=== PATIENT | male | born 2000 | race American Indian/Alaskan Native ===

== ENCOUNTER 2020-12-09 14:30 | Observation (INO) | payer BC ==
[~2020-12-09] VITALS: Ht 182.9 cm; Wt 96.1 kg
--- NOTE | 2020-12-09 19:38 | NUR ---
SHIFT REPORT RECEIVED FROM CHRISTOPHER TEJADA. PT STILL IN SURGERY.
--- NOTE | 2020-12-09 21:03 | NUR ---
12/09/202102 AUREA TRONCOSO 2042 PATIENT INTO PACU. AIRWAY BEING SUPPORTED WITH JAW THRUST. 6L MASK. PATIENT NOT RESPONDING TO PAINFUL STIMULI. DRESSING TO ABDOMEN STERI STRIPS, PUNCTURE SITES X3 SMALL AMOUNT OF RED DRAINAGE. 2100 AIRWAY SELF REMOVED, PATIENT RESPONDS TO VERBAL STIMULI, APPEARS DROWSY, CONTINUES TO REST WITH EYES CLOSED. 100% ROOM AIR. VSS. DRESSING HAVE NO NEW DRAINAGE AT SURGICAL SITE. ABDOMEN SOFT.
--- NOTE | 2020-12-09 21:30 | NUR ---
IN ROOM TO TAKE VS. PT ALREADY MOVED OVER TO BED. ORIENTED PT TO CALL LIGHT AND REVIEWED ADMISSION HX WITH PT. BROUGHT BEDDING IN FOR VISITOR. CALL LIGHT IS CLOSE AND PRIMARY RN YUKI IS IN THE ROOM.
--- NOTE | 2020-12-09 22:00 | NUR ---
ASSESSMENT, VS AND I&O COMPLETED. PT DUE TO VOID. SCHEDULED MEDS PROVIDED. PT PAIN 3/10 IN ABD. GCS 15, A&O X4. LUNGS CLEAR, HEART TONES REGULAR. ABD SOFT, TENDER, MILDLY DISTENDED, BOWEL TONES HYPOACTIVE. DRESSINGS WNL, SCANT SANGUINOUS OUTPUT. CMS INTACT. SCHEDULED MEDS PROVIDED. IV FLUID INFUSING PER ORDER. IV WNL. PUDDING AND JELLO PROVIDED. FRIEND IN ROOM. NO OTHER NEEDS. CALL LIGHT IN REACH.
--- NOTE | 2020-12-09 22:38 | NUR ---
PT CALLED SAYING THAT HE HAS BLOOD ON HIS GOWN AND WAS NOT SURE IF THIS WAS NORMAL. UPON INSPECTION IT APPEARS TO BE A SMALL AMOUNT, STERISTRIPS AT ALL 3 LAPSITES HAVE BLOOD ON THEM BUT NOTHING IS CURRENTLY DRAINING. TOLD PT THIS IS WNL AND WE WILL KEEP AN EYE ON IT AND WILL TELL PRIMARY MALLORY MIRZA. PT DENIES FURTHER NEEDS, CALL LIGHT IS CLOSE.
--- NOTE | 2020-12-09 22:59 | NUR ---
IN TO ASSIST RN WITH/ENTER POST OP VITALS
--- NOTE | 2020-12-09 23:33 | NUR ---
SCHEDULED MED PROVIDED. BROTH AND PUDDING PROVIDED. NO OTHER NEEDS. CALL LIGHT IN REACH.
--- NOTE | 2020-12-10 00:05 | NUR ---
VS COMPLETED. PT STOOD AT BEDSIDE TO URINATE WITHOUT DIFFICULTY. NO OTHER NEEDS. CALL LIGHT IN REACH.
--- NOTE | 2020-12-10 00:58 | NUR ---
VS COMPLETED. ABD PAIN 3/10, DENIES NEED FOR INTERVENTION. PT REPORTS BOWEL "GRUMBLING" BUT NOT PASSING GAS. JELLO AND PUDDING PROVIDED. NO OTHER NEEDS. CALL LIGHT IN REACH.
--- NOTE | 2020-12-10 02:10 | NUR ---
IN TO GET 2AM VITALS, PT DENIES NEED TO VOID, FRESH ICE WATER GIVEN, NO FURTHER NEEDS AT THIS TIME
--- NOTE | 2020-12-10 04:00 | NUR ---
PT RESTING IN BED, EYES CLOSED. RR EVEN, UNLABORED. CALL LIGHT IN REACH.
--- NOTE | 2020-12-10 05:37 | NUR ---
ASSESSMENT, VS AND I&O COMPLETED. PT UP TO BR AND BACK TO BED, SBA. ABD PAIN 4/10, SCHEDULED PAIN MED PROVIDED. GCS 15, A&O X4. LUNGS CLEAR, HEART TONES REGULAR. ABD SOFT, TENDER, MILDLY DISTENDED, BOWEL TONES ACTIVE, PT REPORTS FLATUS. STERI STRIPS WNL. PT DENIES NAUSEA. CMS INTACT. IV WNL, IV FLUIDS INFUSING PER ORDER. IV FLUIDS INFUSING PER ORDER. NO OTHER NEEDS. CALL LIGHT IN REACH.
--- NOTE | 2020-12-10 08:36 | NUR ---
PATIENT AWAKE IN BED, BOARD UPDATED, PATIENT WOULD LIKE A SHOWER THIS MORNING AFTER BREAKFAST.
--- NOTE | 2020-12-10 09:15 | NUR ---
PT AWAKE AND ALERT THIS AM, TOLERATING REGULAR DIET WELL. INDEPENDENT IN ROOM, STEADY ON FEET. SS IN PLACE OVER 3 LAP SITES, NO NEW DRAINAGE. NO ACUTE CHANGES TO ASSESSMENT. PT FEELING WELL OVERALL. MORNING MEDICATIONS GIVEN. PT CALLS APPROPRIATELY.
--- NOTE | 2020-12-10 12:20 | NUR ---
PT IN BR-WILL CHECK BACK
--- NOTE | 2020-12-10 13:08 | NUR ---
PATIENT AWAKE IN BED, FAMILY IN ROOM. VITALS AND I&OS CHARTED. FRESH ICE WATER AND PUDDING PROVIDED.
[2020-12-10] MEDS ORDERED: OXYCODON-ACETA1 EAC2 PO (13:57)
[2020-12-10] MEDS ORDERED: IBUPROFEN600 MG PO (13:57)
[2020-12-10] MEDS ORDERED: ACETAMINOPHEN500 MG PO (13:58)
--- NOTE | 2020-12-11 11:49 | OR ---
[facility] [address], [place] [address] Signed DATE OF OPERATION: 12/09/2020 SURGEON: Jarrod Mcnulty MD PREOPERATIVE DIAGNOSIS: Acute appendicitis. POSTOPERATIVE DIAGNOSIS: Acute appendicitis without perforation. PROCEDURE: Laparoscopic appendectomy. ANESTHESIA: General endotracheal; Zoraida Murillo CRNA and local 10 mL of 0.25% Marcaine with epinephrine. INDICATION: This 20-year-old man presented to the emergency room today with right lower abdominal pain, having lasted less than 24 hours in aggregate. He was evaluated by Dr. Lara who found him to have tenderness in the right lower quadrant. White count elevated to 12.[address] scan of the abdomen confirming appendicitis with fecalith. He has been fluid resuscitated, given intravenous antibiotic cefoxitin and is now to undergo appendectomy preferably by laparoscopic approach. The risk of bleeding, infection, need for open procedure, need for other indicated procedures and so forth was all reviewed with him. He understands and wished to proceed. FINDINGS: Indeed the appendix was quite inflamed. It was not perforated. There was no sign of abscess. Complete appendectomy was performed without problem. There were no other findings of concern. The terminal ileum was normal. The liver and gallbladder were normal. DESCRIPTION OF PROCEDURE: The patient was brought to the operating room, given a general endotracheal anesthetic. Preoperative antibiotic cefoxitin had been given. A Ingram catheter was not required as he had voided immediately prior to operation. The abdomen was clipped and prepared with a chlorhexidine solution and draped sterilely. An infraumbilical incision was made using an open Alysia cannula technique. Pneumoperitoneum was achieved to level of 14 mmHg with carbon dioxide gas. Intraabdominal inspection showed no sign of ascites or Electronically Signed By: JARROD MCNULTY MD 12/11/20 1149 PATIENT NAME: MORRIS VAZQUEZ OPERATIVE REPORT DATE OF : 00 REPORT #: [id number] PHYSICIAN: JARROD MCNULTY MD PCP: NO PRIMARY CARE PHYSICIAN REPORT IS CONFIDENTIAL AND NOT TO BE RELEASED WITHOUT AUTHORIZATION [facility] [address], [place] [address] Signed carcinomatosis. The gallbladder appeared normal as did the liver. The appendix was visualized as it was somewhat anterior in its position, definitely markedly inflamed without sign of purulence proper nor any sign of perforation. An epigastric 12 mm port was placed and the camera replaced to that site. In the right lower quadrant, 5 mm port was placed and with two hand manipulation, the cecum and appendix could be more fully evaluated. The terminal ileum was normal. The appendix was elevated and a window created between the appendix and the cecum and using an Endo-EVAN stapling device, the appendix was transected, flushed indeed with a portion of cecum. Further manipulation allowed for application of an Endo-EVAN to the mesentery of the appendix, transecting it well. The appendix was placed in an endobag and extracted through the infraumbilical port site. Irrigation was undertaken in the region of the staple line and there was no sign of bleeding or other problems. Excess irrigation fluid was suctioned free in the pelvis as well as over the liver. Direct visualization of the port sites was used to remove the trocars, confirming no sign of ongoing bleeding. The epigastric port had some oozing of subcutaneous tissue blood and this was secured with 0 Vicryl suture in the fascial layer with good and complete hemostasis. The infraumbilical fascial incision was reapproximated with interrupted 0 Vicryl suture. A 10 mL of 0.25% Marcaine with epinephrine was injected locally. The skin was closed with interrupted 3-0 Vicryl. Steri-Strips were applied. The patient was ultimately extubated and transferred to the recovery room in good condition having suffered no complications. Sponge, needle, and instrument counts were reported as correct x3. MD ANGI Alarcon/YONATHANL /[id number] cc: Matthew Lara Copies: MATTHEW LARA ~ Electronically Signed By: JARROD MCNULTY MD 12/11/20 1149 PATIENT NAME: MORRIS VAZQUEZ OPERATIVE REPORT DATE OF : 00 REPORT #: [id number] PHYSICIAN: JARROD MCNULTY MD PCP: NO PRIMARY CARE PHYSICIAN REPORT IS CONFIDENTIAL AND NOT TO BE RELEASED WITHOUT AUTHORIZATION
--- NOTE | 2020-12-11 11:49 | HP ---
[facility] [address], [place] [address] Signed ADMISSION DATE: 12/09/2020 REASON FOR ADMISSION: Acute appendicitis. HISTORY OF PRESENT ILLNESS: This muscular and relatively thin and tall 20-year-old Mexican man began having abdominal pain earlier in the day. This was associated with a brief amount of nausea but no actual vomiting. He presented to the emergency room where he was thoroughly evaluated by Dr. Matthew Lara including clinical examination. LABORATORY DATA: Lab studies show an elevated white count greater than 12,000. A CT scan of the abdomen showing a dilated appendix with fecalith consistent with appendicitis. He is admitted for further evaluation and care. PAST MEDICAL HISTORY: Notable for tonsillectomy in the distant past. He has no other medical problems. The patient remains vigorously healthy and works out on a routine basis. 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 He is from [place], [place] and is a member of . He is accompanied by his girlfriend today. Notably, his father is a natural sciences manager in the [place] area. REVIEW OF SYSTEMS: He denies any shortness of breath or chest pain. He has had no dysphagia or dysuria. He denies any hematemesis or blood per rectum. PHYSICAL EXAMINATION: GENERAL: Well-developed, well-nourished, muscular tall young [place] man who does not look systemically toxic. HEENT: Trachea is midline. Mucous membranes are moist. CHEST: Shows normal respiratory excursion. Pulses regular. HEART: Regular. ABDOMEN: Nondistended. Rovsing sign is negative at this time, previously positive from other physician exam. He does have mild tenderness at McBurney's point. EXTREMITIES: Show no clubbing, cyanosis, or edema. LAB STUDIES: Show elevated white count greater than 12.6. Other lab studies are normal. I have reviewed the CT scan in detail as well as report and reviewed with the radiologist as Electronically Signed By: JARROD MCNULTY MD 12/11/20 1149 PATIENT NAME: MORRIS VAZQUEZ HISTORY AND PHYSICAL DATE OF : 00 REPORT #: [id number] PHYSICIAN: JARROD MCNULTY MD PCP: NO PRIMARY CARE PHYSICIAN REPORT IS CONFIDENTIAL AND NOT TO BE RELEASED WITHOUT AUTHORIZATION [facility] [address], [place] [address] Signed well. ASSESSMENT: The patient has an acute appendicitis with a fecalith noted at the base of the appendix. Discussed with him in detail the pathophysiology of the problem and recommendation of treatment to include appendectomy. He was begun on cefoxitin antibiotic already. I expect a laparoscopic approach to appendectomy would be possible though an open procedure may be required. The risk of bleeding, infection, failure to cure the problem, and other unforeseen complications were reviewed in detail, he understands and wished to proceed. I did briefly discuss the concept of antibiotic therapy (conservative management) of appendicitis which I would not recommend, particularly in the presence of fecalith. He agrees with this as well. MD ANGI Alarcon/RAMIREZ /[id number] cc: Matthew Lara Copies: MATTHEW LARA ~ Electronically Signed By: JARROD MCNULTY MD 12/11/20 1149 PATIENT NAME: MORRIS VAZQUEZ PB HISTORY AND PHYSICAL DATE OF : 00 REPORT #: [id number] PHYSICIAN: JARROD MCNULTY MD PCP: NO PRIMARY CARE PHYSICIAN REPORT IS CONFIDENTIAL AND NOT TO BE RELEASED WITHOUT AUTHORIZATION
--- NOTE | 2020-12-16 14:42 | PATH ---
[facility] [address] [place] [address] Signed SPECIMEN(S): A APPENDIX SPECIMEN SOURCE: A. APPENDIX CLINICAL HISTORY: Pre: Acute appendicitis. Post: Laparoscopic appendectomy. FINAL PATHOLOGIC DIAGNOSIS: Appendix, appendectomy: - Acute appendicitis. - Acute periappendicitis. - No evidence of neoplasia. SHAIK:mily:C2NR MICROSCOPIC EXAMINATION: Histologic sections of all submitted blocks are examined by light microscopy. These findings, together with the gross examination, support the pathologic diagnosis. GROSS DESCRIPTION: The specimen, labeled "KL," and designated on the requisition "appendix," is received in formalin and consists of Specimen: Appendix with mesoappendix. Dimensions: 7.0 x 0.8-1.2 cm. Serosa: Logan and smooth with central area of congestion. Disruption: Not grossly identified. Inking: Staple line is inked black. Mucosa: Logan-mottled red. Fecalith: One dark brown measuring 0.5 x 0.5 x 0.4 cm. Additional: None. Multimedia Programmer sections are submitted in cassette (A1). AT (under the direct supervision of a pathologist) The Gross Description was prepared using a voice recognition system. The report was reviewed for accuracy; however, sound-alike word errors, addition and/or deletions may occur. If there is any question about this report, please contact Client Services. PERFORMING LABORATORY: The technical component was performed by [facility], [address] [place] [id number] (Animal Killer: Kiersten Jaime MD; CLIA# [id number]). PATIENT NAME: MORRIS VAZQUEZ PATHOLOGY DATE OF : 00 REPORT #: [id number] PHYSICIAN: KELVIN PATHOLOGY PCP: NO PRIMARY CARE PHYSICIAN REPORT IS CONFIDENTIAL AND NOT TO BE RELEASED WITHOUT AUTHORIZATION [facility] [address] [place], [place] [address] Signed The professional interpretation was performed by [facility], [facility], [address] [place] [address]. Diagnostician: Cornel Barrera MD Pathologist Electronically Signed 12/16/2020 Copies: ~ PATIENT NAME: MORRIS VAZQUEZ PATHOLOGY DATE OF : 00 REPORT #: [id number] PHYSICIAN: KELVIN PATHOLOGY PCP: NO PRIMARY CARE PHYSICIAN REPORT IS CONFIDENTIAL AND NOT TO BE RELEASED WITHOUT AUTHORIZATION
== END 2020-12-10 15:10 | disposition home or self-care (01) ==
LOC: ED 14:30 → MS 16:44
PROVIDERS: ADMIT Surgery; ATTEND Surgery
PROC: 0DTJ4ZZ Resection of Appendix, Percutaneous Endoscopic Approach (ICD-10-PCS; principal; 2020-12-09 19:30)
DX: K35.80 Unspecified acute appendicitis (principal); K38.1 Appendicular concretions; K21.9 Gastro-esophageal reflux disease without esophagitis; Z20.822 Contact with and (suspected) exposure to COVID-19
CPT/HCPCS: 00840; 74177; 80048; 80053; 81001; 83690; 85025; 96365; 96372; 96375; 96376; 99285-25; C9803; G0378; J0330; J0694; J1100; J1644; J1885; J2001; J2250; J2270; J2405; J2704; J7121; Q9967; U0003

== ENCOUNTER 2024-08-14 09:19 | Emergency (ER) | payer OTHER ==
[~2024-08-14] VITALS: Ht 182.9 cm; Wt 100.2 kg
[~2024-08-14 09:19] MED LIST: ACETAMINOPHEN500 MG PO; IBUPROFEN600 MG PO; OXYCODON-ACETA1 EAC2 PO
--- OUTSIDE RECORDS SUMMARY | 2024-08-14 09:25 | XMS ---
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 Gabriela has no Care Guidelines for this patient. Gayatri VISIT COUNT (12 MO.) [address] TOTAL 4 NOTE: Visits indicate total known visits. ED/C VISIT TRACKING (12 MO.) [facility]/14/[facility]24 09:[facility] [place] [facility] COMPLAINT: - EYE PROBLEM 08/13/2024 19:[address] [facility] [place] TYPE: Emergency COMPLAINT: - EYE PAIN 10/28/2023 10:23 [facility] TYPE: Emergency COMPLAINT: - cough for a month getting worst DIAGNOSES: - Acute upper respiratory infection, unspecified 08/22/2023 19:39 [facility] TYPE: Emergency COMPLAINT: - finger injury DIAGNOSES: - Contusion of left thumb without damage to nail, initial encounter - Contusion of right index finger without damage to nail, initial encounter INPATIENT VISIT TRACKING (12 MO.) No inpatient visits to display in this time frame [email or web address]
[2024-08-14] MEDS ORDERED: TETRACAINE HCL 0.5% 4 ML BTL OD SCH (10:00)
[2024-08-14] MEDS ORDERED: ERYTHROMYCIN1 GM OP (10:10)
[2024-08-14 10:17] VITALS: BP 118/80
== END 2024-08-14 10:19 | disposition home or self-care (01) ==
LOC: ED 09:19
DX: H10.9 Unspecified conjunctivitis (principal); H00.011 Hordeolum externum right upper eyelid
CPT/HCPCS: 99283